=== PATIENT | female | born 1970 | race Caucasian/White ===

== ENCOUNTER → 2021-03-11 | Day surgery (SDC) | payer OTHER ==
--- NOTE | 2021-03-11 11:08 | RAD REPORT ---
EXAM DESCRIPTION: Ultrasound-guided vacuum assisted right breast core biopsy CLINICAL HISTORY: Breast mass N63.13, N63.12, N63.42, Z80.3, R92.8 COMPARISON: Follow Up Breast Axilla Comp dated 03/10/2021; Follow Up Breast Axilla Comp dated 03/10/20; 3D DIAG NURY BILAT W/CAD dated 03/10/2021 FINDINGS: Informed consent was obtained and time-out was performed. The patient's right breast was prepped and draped in the usual sterile fashion. 1% lidocaine was used for local anesthetic purposes. Utilizing aseptic technique and ultrasound guidance, a 12 gauge vacuum assisted core biopsy device wa s used to obtain 2 core specimens through the largest detected mass periareolar 9-10 o'clock right br east. . A post biopsy clip was then placed. All collected material was sent for cytology. Patient tolerated procedure well. IMPRESSION: Successful ultrasound guided vacuum assisted right breast mass biopsy. Please note several additional suspicious right breast masses were seen during the workup of this pat ient which were not biopsied today. Multicentric disease is felt to be highly likely present.
== END ==
LOC: DS 09:50
PROVIDERS: ATTEND Surgery
DX: N63.13 Unspecified lump in the right breast, lower outer quadrant (principal); N63.12 Unspecified lump in the right breast, upper inner quadrant; N63.42 Unspecified lump in left breast, subareolar; R92.8 Other abnormal and inconclusive findings on diagnostic imaging of breast; Z80.3 Family history of malignant neoplasm of breast
CPT/HCPCS: 19083; 88305

== ENCOUNTER 2021-08-24 10:54 | Observation (INO) | payer BC ==
[2021-08-21 12:56] LABS: Absolute Lymphocytes (CBC) 1.5 K/uL (0.7-4.9); Hematocrit 35.6 % (36.0-45.0); MPV 7.6 fL (7.6-11.3); RBC Red Blood Cell Count 4.22 M/uL (3.86-4.86)
--- NOTE | 2021-08-21 12:58 | RAD REPORT ---
EXAM DESCRIPTION: Analy Benedict And Eusebio (2 Views)08/21/2021 12:36 pm CLINICAL HISTORY: Preop/breast cancer COMPARISON: None FINDINGS: The lungs appear clear of acute infiltrate. The heart is normal size IMPRESSION: No acute abnormalities displayed
[2021-08-21 13:06] LABS: BUN Blood Urea Nitrogen 12 mg/dL (7-18); Bicarbonate 25 mmol/L (21-32); Glucose Level 100 mg/dL (74-106); Potassium 3.3 mmol/L (3.5-5.1); Sodium Level 140 mmol/L (136-145)
--- NOTE | 2021-08-22 12:46 | EKG ---
Test Date: 2021-08-21 Test Time: 12:23:22 Collision Repair Technician: E TH MEASUREMENT RESULTS: Intervals: Rate: 78 ME: 162 QRSD: 80 QT: 398 QTc: 453 [place]: P: 61 ME: 162 QRS: 57 T: 45 INTERPRETIVE STATEMENTS: Normal sinus rhythm Normal ECG No previous ECG available for comparison Electronically Signed On 08-22-21 12:44:55 COMMERCIAL SALES DIRECTOR by Ildefonso Holland
[2021-08-24] MEDS ORDERED: Ringers Lactate 1,000 ML IV ONE ×2 (11:20→14:31)
[2021-08-24] MEDS ORDERED: CEFAZOLIN SODIUM 1 GM/VIAL ONE (11:45)
[2021-08-24] MEDS ORDERED: METHYLENE BLUE 0.5% 10 ML AMP ONE (12:14)
[2021-08-24] MEDS ORDERED: LIDOCAINE 1% MPF 30 ML VIAL ONE (12:15)
[2021-08-24] MEDS ORDERED: ROCURONIUM 50 MG/5 ML VIAL IV ONE (12:20)
[2021-08-24] MEDS ORDERED: FENTANYL CITR 250 MCG/5 ML ONE (12:20)
[2021-08-24] MEDS ORDERED: propofoL 200 MG/20 ML VIAL IV ONE (12:20)
[2021-08-24] MEDS ORDERED: dexAMETHasone 10 MG/ML VIAL ONE (12:20)
[2021-08-24] MEDS ORDERED: LIDOCAINE 2% MPF 5 ML VIAL ONE (12:20)
[2021-08-24] MEDS ORDERED: MIDAZOLAM HCL 2 MG/2 ML INJ ONE (12:21)
[2021-08-24] MEDS ORDERED: ONDANSETRON 4 MG/2 ML VIAL ONE (12:25)
[2021-08-24] MEDS ORDERED: Mastisol Adhesive Liq ONE (15:12)
[2021-08-24] MEDS ORDERED: HYDROCODONE/APAP 5/325 MG TAB PO PRN (15:16)
--- NOTE | 2021-08-24 15:27 | P.BOP ---
Preoperative diagnosis: Metastatic breast cancer , s/pCHemo Postoperative diagnosis: same Primary procedure: 1. Right mofified radical mastectomy Secondary procedure: 2. LEft simple mastectomy Assistant Auto Center Manager: Kirsten Richardson (Ramon) Estimated blood loss: <100cc Specimen: R + L breast Findings: as above Anesthesia: General Complications: None Drain(s): OZZY drain Transferred to: Recovery Room Condition: Good
[2021-08-24] MEDS ORDERED: HYDROMORPHONE HCL 1 MG/ML INJ ONE (15:49)
[2021-08-24] MEDS ORDERED: HYDROMORPHONE HCL 1 MG/ML INJ IV ONE (16:00)
[2021-08-24] MEDS: ONDANSETRON 4 MG/2 ML VIAL IV PRN ×2 (16:09→21:21)
--- OUTSIDE RECORDS SUMMARY | 2021-08-24 16:12 | XMS REPORT | Continuity of Care Document ---
:1970 Author Organization [facility] t Address [address] [place] [address] Care Team Providers Name Role Phone Pcp, Patient Does Not Have A Primary Care Physician +[id number] JESUS MANUEL Attending Clinician Unavailable UNKNOWN Attending Clinician Unavailable Jesus Manuel ANP Attending Clinician Problems This patient has no known problems. Allergies, Adverse Reactions, Alerts Allergy Allergy Status Severity Reaction(s) Onset Inactive Treating Comm ents Source Name Type Date Date Clinician NO KNOWN Drug Active Univers ALLERGIE Class ity of [facility] Social History Social Habit Start Date Stop Date Quantity Comments Source Exposure to Unable to assess Univers ity of SARS-CoV-2 [facility] [place] Sex Assigned At [birth year] Universit y of 00:00:00 00:00:00 [facility] Smoking Status Start Date Stop Date Source Unknown if ever smoked [facility] Medications This patient has no known medications. Procedures This patient has no known procedures. Encounters Start End Encounter Admission Attending Care Care Encounter Source Date/Time Date/Time Type Type Clinicians Facility Department ID 2020-12-25 2020-12-25 [id number] Univers 00:00:00 23:59:00 griselda LE TOSHIA [facility] 2020-12-25 2020-12-25 Outpatient R ANA, [facility] [id number] Univers 11:15:00 11:15:00 ATTENDING ity [facility] 2020-12-25 2020-12-25 Case [facility] [id number] Univers 00:00:00 00:00:00 Management christa PRIMARY [id number] ity of [facility] [id number] Radha [facility] [id number] Pa dical 036 Branch Results This patient has no known results.
[2021-08-24] MEDS: NA CHLORIDE 0.9% 1,000 ML IV SCH (16:44)
[2021-08-24 17:39] VITALS: BMI 34.7
[2021-08-24] MEDS: CEFOXITIN 1 GM in NA CHLORIDE 0.9% 50 ML IVPB SCH (17:42)
[2021-08-24] MEDS: HYDROMORPHONE HCL 1 MG/ML INJ IV PRN (21:20)
--- NOTE | 2021-08-25 01:18 | OP ---
Date of Procedure: 08/24/2021 Surgeon: Hilario Bird MD Perioperative Nurse: ALETHA Mojica. Preoperative Diagnosis: Metastatic right breast cancer status post neoadjuvant treatment chemotherap y. Postoperative Diagnosis: Metastatic right breast cancer status post neoadjuvant treatment chemothera py. Procedures: 1.Right modified radical mastectomy. 2.Left simple mastectomy. Estimated Blood Loss: Less than 10 mL. Specimen: Right breast with axillary lymph node and left breast. Finding: As above. Anesthesia: General plus local. Drain: OZZY drain x4. Indication: This is a case of a 50-year-old patient with a large metastatic breast cancer to the poi nt that she has to have neoadjuvant treatment. Dr. Cohen discussed the case with me, who happened to be her oncologist, and to discuss this pros and cons with the patient to and decision was made not on ly to do a right modified radical mastectomy, but also patient desired a left simple mastectomy. The benefits, alternatives, and risks fully explained to the patient which include, but not limited to i nfection, bleeding, damage to adjacent structures, anesthesia complication, recurrence, MN, and even . She also understands this may not relieve the symptoms. She might need more than one surgica l interventions. We make each procedure individually to avoid cross-contamination of instruments or personnel. We proceeded to do the right side first which is the one with the most disease. The iliana ent understands the risk, some numbness, chronic pain, lymphedema, skin failure including the benefit s, alternatives, and risks with infection, bleeding, damage to adjacent structures, anesthesia compli cation, recurrence, MN, and even . Procedure In Detail: The patient brought to the operating room, placed in supine position. A time-o ut was called. Bilateral breasts, chest wall, axilla and upper arm and neck were prepped and draped in usual sterile fashion. Once again, we want to specify that we avoid cross-contamination by using different set of instruments and do one-time first. A skin incision was made. We want to make sure we encompassed the nipple and areola complex with it. Flaps were raised in the avascular plane betwe en the subcutaneous tissue and the breast tissue, superiorly to the clavicle, medial to the sternum, inferiorly to the anterior rectus sheath and laterally to the anterior border of latissimus dorsi. T he breast tissue and the underlying pectoralis fascia were excised from the pectoralis major muscle. The clavipectoral fascia was then incised along the edge of the pectoralis major. The pectoralis ma terrie and minor were free from the surrounding fat and gideon tissue. Dissection continued under the pe ctoralis major and minor. The pectoral neurovascular bundle was identified and preserved. Level 1 a nd 2 gideon tissue was included in the dissection. The axillary vein was identified and protected at all times. The thoracodorsal nerve was identified and preserved. The long thoracic nerve was also i dentified and preserved. The remainder of the lymph nodes was removed making sure we protect the str ucture mentioned above. After that, the wound was irrigated. Hemostasis obtained. Profuse irrigati on was done. The pectoralis area and the flaps were identified once again, looks viable. I proceede d to leave the 2 drains. Entry and getting into through different puncture sites. OZZY drain was left near the axillary region and the pectoralis area, secured in place with 3-0 nylon and connected to b ulb suction. The closure was in a combination of a 3-0 chromic and 4-0 PDS. Sponge count, instrumen t counts correct. Once again, the second set was done with different instrument, different gown, and different glove. It was after we had the instrument counts correct. The left side was done using a similar technique except the axillary dissection. I proceeded to make an incision to include the ni pple-areolar complex. Flaps were elevated superior to the clavicle, sternum medially, inferiorly to the anterior rectus sheath and laterally to latissimus dorsi. The breast tissue and underlying pecto ralis fascia were excised with the specimen progressing from medial to lateral. Once we have the geena ast removed, we obtained hemostasis once again. Due to the large size of the area, I believe [address] rafael are indicated, so we put 2 OZZY drains to different insertion sites. OZZY drain was secured in plac e with 3-0 nylon. After profuse irrigation, then we proceeded to close this in layers with a combina tion of 3-0 chromic and 4-0 PDS. Sponge count and instrument counts were correct. Patient tolerated the procedure well. The patient was sent to recovery in stable condition. In advance, we discussed the case with the patient and she preferred to stay overnight based on large surgery. She had been on chemotherapy before I agreed with her and she has other comorbidities that we are going to be look ing for. We encouraged ambulation and incentive spirometry. We are going to keep her for pain contr ol too. MASOOD/NEPTALI Voice ID: [id number] Report ID: [id number]
[2021-08-25] MEDS: NA CHLORIDE 0.9% 1,000 ML IV SCH ×2 (03:26→12:00)
[2021-08-25] MEDS: CEFOXITIN 1 GM in NA CHLORIDE 0.9% 50 ML IVPB SCH ×2 (03:39→06:03)
[2021-08-25] MEDS: HYDROMORPHONE HCL 1 MG/ML INJ IV PRN ×2 (04:24→12:39)
[2021-08-25 04:37] LABS: Hematocrit 28.4 % (36.0-45.0); Lymphocytes % 7.1 % (15.3-44.8); MPV 8.1 fL (7.6-11.3); RBC Red Blood Cell Count 3.34 M/uL (3.86-4.86)
[2021-08-25 05:02] LABS: Potassium 3.7 mmol/L (3.5-5.1)
[2021-08-25 05:14] LABS: Blood Morphology Comment NOT SEEN (NOT SEEN); Platelet Estimate ADEQ
--- NOTE | 2021-08-25 11:16 | P.DS ---
Admission Date: 08/24/21 Discharge Date: 08/25/21 Disposition: ROUTINE DISCHARGE Discharge Condition: GOOD - Problems (1) Metastatic breast carcinoma Current Visit: Yes Status: Acute Brief History of Present Illness: See H&P Hospital Course: unremarcable Vital Signs/Physical Exam: Temp Pulse Resp BP Pulse Ox 98.6 F 81 16 140/75 96 08/25/21 08:00 08/25/21 08:00 08/25/21 09:28 08/25/21 08:00 08/25/21 09:28 General: Alert, In no apparent distress, Oriented x3, Cooperative HEENT: Atraumatic, Normocephalic, PERRLA Neck: Supple Respiratory: Clear to auscultation bilaterally Cardiovascular: Normal pulses Gastrointestinal: Soft and benign, Non-distended Musculoskeletal: No clubbing, No swelling, No erythema, No warmth Integumentary: No rashes, No breakdown Neurological: Normal speech Laboratory Data at Discharge: WBC 14.30 K/uL (4.3-10.9) H D 08/25/21 04:16 Hgb 9.6 g/dL (12.0-15.0) L 08/25/21 04:16 Hct 28.4 % (36.0-45.0) L D 08/25/21 04:16 Plt Count 209 K/uL (152-406) D 08/25/21 04:16 Sodium 138 mmol/L (136-145) 08/25/21 04:19 Potassium 3.7 mmol/L (3.5-5.1) 08/25/21 04:19 BUN 15 mg/dL (7-18) 08/25/21 04:19 Creatinine 0.93 mg/dL (0.55-1.3) 08/25/21 04:19 Glucose 137 mg/dL (74-106) H 08/25/21 04:19 Home Medications: Aspirin [Aspirin EC 81 MG] 81 mg PO DAILY 08/21/21 Esomeprazole Mag Trihydrate [Nexium] 40 mg PO DAILY 08/21/21 Gabapentin 300 mg PO BEDTIME 08/21/21 LORazepam [Ativan] 0.5 mg PO BID PRN 08/21/21 Sertraline [Zoloft] 100 mg PO DAILY 08/21/21 Tramadol HCl [Ultram] 50 mg PO Q6H PRN 08/21/21 hydroCHLOROthiazide [Hydrodiuril*] 25 mg PO DAILY 08/21/21 Physician Discharge Instructions: Keep dressing intact until next doctor visit REcord OZZY output q24h Diet: AHA Activity: No lifting more than 10 lbs Followup: Hilario Bird MD [ACTIVE - CAN ADMIT] - 1 Week
[2021-08-25 13:24] VITALS: BP 143/67; TEMP 97
[2021-08-25 14:16] VITALS: O2SAT 96
== END 2021-08-25 14:52 | disposition home or self-care (01) ==
LOC: OR 10:54 → 2ND 15:54
PROVIDERS: ADMIT Surgery; ATTEND Surgery
PROC: 0HTU0ZZ Resection of Left Breast, Open Approach (ICD-10-PCS; 2021-08-24)
PROC: 0HTT0ZZ Resection of Right Breast, Open Approach (ICD-10-PCS; principal; 2021-08-24 13:45)
DX: C50.911 Malignant neoplasm of unspecified site of right female breast (principal); C77.3 Secondary and unspecified malignant neoplasm of axilla and upper limb lymph nodes; Z17.0 Estrogen receptor positive status [ER+]; D24.2 Benign neoplasm of left breast; I10 Essential (primary) hypertension; F41.9 Anxiety disorder, unspecified; K21.9 Gastro-esophageal reflux disease without esophagitis; Z20.822 Contact with and (suspected) exposure to COVID-19; Z98.51 Tubal ligation status; Z85.038 Personal history of other malignant neoplasm of large intestine; Z82.49 Family history of ischemic heart disease and other diseases of the circulatory system
CPT/HCPCS: 93005; 85025 ×2; 80048 ×2; 36415 ×2; 81025; 88307; 88309; 71046; 97161; 19307; 19303; U0003; J2704; J2250; J3010; J1100; J1170 ×4; J7120 ×2; J7030 ×2; J0694 ×3; J2405 ×3; J0690; G0379; G0378 ×2; 88305

== ENCOUNTER → 2023-04-25 | Day surgery (SDC) | payer BC ==
--- NOTE | 2023-04-25 12:08 | RAD REPORT ---
EXAM DESCRIPTION: Ultrasound-guided vacuum assisted left axilla core biopsy CLINICAL HISTORY: Abnormal left axillary lymph node. History of breast carcinoma. C50.411, R93.89, N63.32 COMPARISON: AXILLA ONLY dated 04/12/2023; Breast Bilat W Wo Cont dated 03/24/2021; Chest Abdomen Pelv is W Cont dated 03/26/2021; Bone Imaging Whole Body dated 03/26/2021 FINDINGS: Informed consent was obtained and time-out was performed. The patient's left axilla was prepped and draped in the usual sterile fashion. 1% lidocaine was used for local anesthetic purposes. Utilizing aseptic technique and ultrasound guidance, a 18 gauge core biopsy device was used to obtain a single core. The suspected enlarged lymph node. All collected material was sent for cytology. Patient tolerated procedure well. IMPRESSION: Successful ultrasound guided core biopsy abnormal left axillary lymph node. .
== END ==
LOC: DS 08:00
PROVIDERS: ATTEND Radiology Radiation Oncology
DX: N63.32 Unspecified lump in axillary tail of the left breast (principal); R93.89 Abnormal findings on diagnostic imaging of other specified body structures; C50.411 Malignant neoplasm of upper-outer quadrant of right female breast
CPT/HCPCS: 19083; 88305